=== PATIENT | female | born 1985 | race African-American/Black ===

== ENCOUNTER → 2022-09-26 | Day surgery (SDC) | payer OTHER | END | disposition home or self-care (01) | LOC: CIR.AMB 06:00 | PROVIDERS: ATTEND Obstetrics & Gynecology Gynecology | DX: N93.8 Other specified abnormal uterine and vaginal bleeding (principal); N85.01 Benign endometrial hyperplasia; Z20.822 Contact with and (suspected) exposure to COVID-19 ==